=== PATIENT | female | born 1995 | race American Indian/Alaskan Native ===

== ENCOUNTER 2017-04-02 14:18 | Emergency (ER) | payer MEDICAID ==
[2017-04-02 22:12] LABS: ALB/GLOB RATIO 1.1 (1.1-1.8); ALBUMIN 4.1 g/dL (3.0-4.8); ALT/SGPT 21 U/L (7-56); AST/SGOT 20 U/L (15-39); BLOOD UREA NITROGEN 9 mg/dL (7-21); GFR AFRICAN-AMERICAN > 60; GFR NON-AFRICAN AMERICAN > 60
[2017-04-02 22:16] LABS: HEMOGLOBIN 11.4 gm/dL (12.0-16.0); MEAN CELL VOLUME 79.3 fL (80.0-105.0); MEAN CORPUSCULAR HGB CONC 32.8 g/dl (31.0-37.0); MEAN PLATELET VOLUME 10.7 fl (7.0-11.0); RBC 4.39 10^6/uL (3.5-6.1); RED CELL DISTRIBUTION WIDTH 13.4 % (11.5-14.5); WHITE BLOOD COUNT 6.5 10^3/ul (4.5-11.0)
[2017-04-02 22:30] LABS: URINE APPEARANCE SL CLOUDY (CLEAR); URINE BILIRUBIN NEGATIVE (NEGATIVE); URINE COLOR YELLOW (YELLOW); URINE GLUCOSE (UA) NEGATIVE (NEGATIVE)
[2017-04-02 22:31] LABS: HCG,QUALITATIVE URINE POSITIVE (NEGATIVE); URINE BLOOD LARGE (NEGATIVE); URINE LEUKOCYTE ESTERASE TRACE Leu/uL (NEGATIVE); URINE NITRATE NEGATIVE (NEGATIVE); URINE PROTEIN 100 mg/dL (<30 mg/dL); URINE UROBILINOGEN 0.2 E.U./dL (<1 E.U./dL)
[2017-04-02 22:32] LABS: URINE BACTERIA MANY (NEG); URINE RBC TNTC /hpf (0-2)
--- NOTE | 2017-04-04 11:58 | US ---
PROCEDURE: HISTORY: PASSED CLOT COMPARISON: None TECHNIQUE: FINDINGS: Uterus measures 10.3 x 5.2 x 9.4 centimeters. The endometrium measures 13 millimeters. Both ovaries have a normal appearance. There is a small amount of free fluid in the pelvis. IMPRESSION: Unremarkable pelvic ultrasound.
== END 2017-04-04 09:16 | disposition home or self-care (01) ==
LOC: ED 14:18 → MERGE 14:18 → ED 04-03 00:03
DX: O03.9 Complete or unspecified spontaneous abortion without complication (principal)

== ENCOUNTER 2017-11-12 11:53 | Emergency (ER) | payer MEDICAID, OTHER ==
[2017-11-12 11:53] VITALS: BMI 29.3
[2017-11-12 12:45] VITALS: BP 141/62; PULSE 82; RESP 18; TEMP 98.3; O2SAT 100
[2017-11-12] MEDS ORDERED: TDAP Vaccine 0.5 mL Syr IM ONE (13:01)
--- NOTE | 2017-11-12 13:05 | ED PDOC ---
Arrival/HPI - General Chief Complaint: Trauma Time Seen by Provider: 11/12/17 13:01 Historian: Patient - History of Present Illness Narrative History of Present Illness (Text): 11/12/17 13:02 22yo female with PMhx of Asthma present with laceration to her right wrist. states she accidentally cut her wrist on her bathroom mirror, while helping her son. Notes laceration was one hour ago. She is not up to date with her TD vaccination. Denies focal weakness, paresthesia, any other complaint. Past Medical History - Provider Review Nursing Documentation Reviewed: Yes - Past History Past History: No Previous - Infectious Disease Hx of Infectious Diseases: None - Tetanus Immunization Tetanus Immunization: Unknown - Past Medical History Past Medical History: No Previous - Cardiac Hx Cardiac Disorders: No - Pulmonary Hx Asthma: Yes - Neurological Hx Neurological Disorder: No - HEENT Hx HEENT Disorder: No - Renal Hx Renal Disorder: No - Endocrine/Metabolic Hx Endocrine Disorders: No - Hematological/Oncological Hx Blood Disorders: No - Integumentary Hx Dermatological Disorder: No - Musculoskeletal/Rheumatological Hx Musculoskeletal Disorders: No - Gastrointestinal Hx Gastrointestinal Disorders: No - Genitourinary/Gynecological Hx Genitourinary Disorders: No - Psychiatric Hx Depression: No Hx Emotional Abuse: No Hx Physical Abuse: No Hx Substance Use: No - Past Surgical History Past Surgical History: No Previous - Suicidal Assessment Feels Threatened In Home Enviroment: No Family/Social History - Physician Review Nursing Documentation Reviewed: Yes Family/Social History: Unknown Family HX Smoking Status: Former Smoker Hx Alcohol Use: No Hx Substance Use: No Hx Substance Use Treatment: No Allergies/Home Meds Allergies/Adverse Reactions: Allergies peanut Allergy (Verified 11/12/17 12:43) ANAPHYLAXIS Review of Systems - Physician Review All systems were reviewed & negative as marked: Yes - Review of Systems Constitutional: Normal Eyes: Normal ENT: Normal Respiratory: Normal Cardiovascular: Normal Gastrointestinal: Normal Genitourinary Female: Normal Musculoskeletal: Normal Skin: Laceration (Right wrist) Neurological: Normal Endocrine: Normal Hemo/Lymphatic: Normal Psychiatric: Normal Physical Exam Vital Signs Reviewed: Yes Vital Signs Temp Pulse Resp BP Pulse Ox 11/12/17 12:44 98.3 F 82 18 141/62 100 Temperature: Afebrile Blood Pressure: Normal Pulse: Regular Respiratory Rate: Normal Appearance: Positive for: Well-Appearing, Non-Toxic, Comfortable Pain Distress: None Mental Status: Positive for: Alert and Oriented X 3 - Systems Exam Head: Present: Atraumatic, Normocephalic Pupils: Present: PERRL Extroacular Muscles: Present: EOMI Conjunctiva: Present: Normal Mouth: Present: Moist Mucous Membranes Neck: Present: Normal Range of Motion Respiratory/Chest: Present: Clear to Auscultation, Good Air Exchange. No: Respiratory Distress, Accessory Muscle Use Cardiovascular: Present: Regular Rate and Rhythm, Normal S1, S2. No: Murmurs Abdomen: Present: Normal Bowel Sounds. No: Tenderness, Distention, Peritoneal Signs Back: Present: Normal Inspection Upper Extremity: Present: Normal Inspection. No: Cyanosis, Edema Lower Extremity: Present: Normal Inspection. No: Edema Neurological: Present: GCS=15, CN II-XII Intact, Speech Normal Skin: Present: Warm, Dry, Normal Color, Laceration (7.0cm linear laceration on the volar aspect of right wrist and 3.0cm wedge shaped perpendicular laceration. No tendon involvement. FROM. NVI). No: Rashes Psychiatric: Present: Alert, Oriented x 3, Normal Insight, Normal Concentration Medical Decision Making - Medication Orders Current Medication Orders: Discontinued Medications Acetaminophen (Tylenol 325mg Tab) 650 mg PO STAT STA Stop: 11/12/17 13:03 Last Admin: 11/12/17 13:18 Dose: 650 mg Cephalexin Monohydrate (Keflex) 500 mg PO STAT STA PRN Reason: Protocol Stop: 11/12/17 13:02 Last Admin: 11/12/17 13:20 Dose: 500 mg Tetanus/Reduced Diphtheria/Acell Pertussis (Boostrix Vaccine Inj) 0.5 ml IM .ONCE ONE Stop: 11/12/17 13:02 Last Admin: 11/12/17 13:19 Dose: 0.5 ml Immunization Registry Document 11/12/17 13:19 SRE (Rec: 11/12/17 13:19 SRE [id number]) Immunization Registry Consent Date 11/12/17 Procedure: Wound Repair - Consent Obtained Consent obtained: Verbal - Performed by Performed by: Mid-level Provider - Indications Indication(s):: Laceration - Location Location:: Right, Wrist Shape:: Linear Dimensions Length cm: 7.0 Depth:: Epidermis - Anesthetic Technique Local/Regional Anesthetic:: Lidocaine 1% (10ml) - Debris Debris:: None - Irrigated Irrigated with ml of normal saline: 50 - Complexity Complexity:: Intermediate (2 layer) - Muscle repiar layer closed with Muscle repair layer closed with:: # (21), Size (5), Type (nylon), Technique ( interrupted), Wound well approximated, Abx ointment applied, Dressing applied, Tetanus up to date - Patient tolerated procedure Patient Tolerated Procedure:: Well Disposition/Present on Arrival - Present on Arrival Any Indicators Present on Arrival: No History of DVT/PE: No History of Uncontrolled Diabetes: No Urinary Catheter: No History of Decub. Ulcer: No History Surgical Site Infection Following: None - Disposition Have Diagnosis and Disposition been Completed?: Yes Diagnosis: Wrist laceration Disposition: HOME/ ROUTINE Disposition Time: 14:15 Patient Plan: Discharge Patient Problems: Current Active Problems Problem Status Onset Wrist laceration Acute Condition: STABLE Discharge Instructions (ExitCare): Care For Your Stitches (ED), Laceration (ED) Additional Instructions: Keep wound clean and dry Follow up with your doctor in 7days for suture removal Return to ED for fever. redness, discharge Prescriptions: Cephalexin [cephalexin] 500 mg PO TID #15 cap Referrals: [facility] at [facility] [place] [Outside] - Follow up with primary Forms: [employer] (Uzbek)
[2017-11-12] MEDS ORDERED: Lidocaine 1% Inj (20ml) ONE (13:14)
== END 2017-11-12 14:28 | disposition home or self-care (01) ==
LOC: ED 11:53
DX: S61.511A Laceration without foreign body of right wrist, initial encounter (principal); W25.XXXA Contact with sharp glass, initial encounter; Y92.002 Bathroom of unspecified non-institutional (private) residence as the place of occurrence of the external cause; Z23 Encounter for immunization